=== PATIENT | female | born 1995 | race Caucasian/White ===

== ENCOUNTER → 2016-06-10 11:12 | Outpatient (CLI) | payer MEDICAID ==
--- NOTE | 2016-06-13 08:45 | EEG ---
PATIENT:MIHAELA SAWANT DATE OF SERVICE: 06/10/16 MEDICAL RECORD: [id number] DATE OF : 89 LOCATION: [facility] ADMISSION DATE: 06/10/16 REFERRING PHYSICIAN: INTERPRETING PHYSICIAN: TORRI MARIE MD DATE OF SERVICE: 06/10/2016 Referred by myself as an outpatient. ELECTROENCEPHALOGRAM NUMBER: [id number]. DATE OF EXAMINATION: 06/10/2016 at 12:00 noon. TECHNICAL DATA: This electroencephalographic recording consisted of approximately 20 minutes of data collection utilizing the international 10/20 system of electrode placement and both referential and non-referential montages. Sixteen channels of electrocerebral recording are accompanied by a 17th channel dedicated to the electrocardiographic rhythm and 2 channels of electromyographic recording. Recording is performed in the awake and drowsy states utilizing activation by hyperventilation and photic stimulation. ELECTROENCEPHALOGRAPHIC DATA: The awake state comprises approximately 60% of the recorded electrocerebral activity. Electromyographic artifact is prominent and rapid eye movements are seen. The posterior dominant background consists of a symmetric semi-arrhythmic waxing and waning 8-9 Hz alpha activity, which is suppressed by eye opening. The drowsy state comprises the remaining portion of the recorded electrocerebral activity. Electromyographic artifact is only minimally diminished. Rapid eye movements are not seen. The posterior dominant background is relatively suppressed. Also seen are prominent vertex waves. Nearly at the onset of photic stimulation, the patient begins arching her back and shaking all over. She appears to be unresponsive to the technicians. The electrocerebral activity during this period demonstrates extreme electromyographic movement artifact, which obscures much of the recorded electrocerebral activity. Electrocerebral activity is observed; however, through this, demonstrates normal waking activity. No sharp waves are identified. INTERPRETATION: 1. Non-epileptiform event (awake and drowsy). 2. Normal. This electroencephalographic recording demonstrates normal electrocerebral activity and is diagnostic of non-epileptiform event consistent with a pseudoseizure during the recording. TRANSINT:[id number] Voice Confirmation ID: [id number] DOCUMENT ID: [id number] ELECTROENCEPHALOGRAM REPORT [id number] MIHAELA SAWANT TORRI MARIE MD at 0845 CC: [id number] DICTATION DATE: 06/12/16 0630 DIRECTOR OF ENTERPRISE STRATEGY: 06/12/16 0710 DEP CLI 06/10/16 [facility] [id number] [id number]
== END | disposition home or self-care (01) ==
LOC: D.CN 06-05 13:00
DX: F41.1 Generalized anxiety disorder (principal); F43.10 Post-traumatic stress disorder, unspecified

== ENCOUNTER → 2020-09-14 11:07 | Outpatient (CLI) | payer OTHER | END | disposition home or self-care (01) | LOC: D.CT 10:30 | PROVIDERS: ATTEND General Practice | DX: M79.9 Soft tissue disorder, unspecified (principal) ==